=== PATIENT | female | born 1960 | race Two or more races ===

== ENCOUNTER 2019-12-21 16:03 | Outpatient (CLI) | payer OTHER | END 2019-12-21 16:18 | disposition home or self-care (01) | LOC: RAD 16:03 | PROVIDERS: ATTEND Orthopaedic Surgery | DX: M25.522 Pain in left elbow (principal) ==

== ENCOUNTER 2020-01-31 14:03 | Outpatient (CLI) | payer OTHER | END 2020-01-31 14:34 | disposition home or self-care (01) | LOC: NUCLEAR 14:03 | PROVIDERS: ATTEND Orthopaedic Surgery | DX: M81.0 Age-related osteoporosis without current pathological fracture (principal) ==

== ENCOUNTER 2024-10-11 10:54 | Outpatient (CLI) | payer OTHER | END 2024-10-11 11:00 | disposition home or self-care (01) | LOC: RAD 10:54 | PROVIDERS: ATTEND Orthopaedic Surgery | DX: M25.572 Pain in left ankle and joints of left foot (principal) ==

== ENCOUNTER 2025-01-18 11:36 | Outpatient (CLI) | payer OTHER | END 2025-01-18 11:43 | disposition home or self-care (01) | LOC: LAB 11:36 | PROVIDERS: ATTEND Orthopaedic Surgery | DX: E55.9 Vitamin D deficiency, unspecified (principal); M85.9 Disorder of bone density and structure, unspecified; E56.1 Deficiency of vitamin K ==